=== PATIENT | male | born 1965 | race Caucasian/White ===

== ENCOUNTER 2018-02-05 15:32 | Outpatient (CLI) | payer BC ==
--- NOTE | 2018-02-05 19:27 | MRI ---
MRI BRAIN AND INTERNAL AUDITORY CANALS WITH AND WITHOUT CONTRAST: HISTORY: A 52-year-old male with: H90.41, sensorineural hearing loss, unilateral, right ear, with unrestricted hearing on the contralat eral side. H91.21, sudden idiopathic hearing loss, right ear. TECHNIQUE: Multiple sequences obtained in axial, sagittal, and coronal planes; both whole brain images and thin slices through the IAC's, pre and post IV injection of gadolinium-based contrast agent: MultiHance 1 9 mL. FINDINGS: The ventricles are normal in size and configuration. There is no major intraaxial signal abnormality , restricted diffusion, abnormal intraaxial enhancement, mass, midline shift or any other mass effect , recent intraaxial hemorrhage. There is no abnormal enhancement, mass, or morphologic abnormality, involving the cerebellopontine an gles, 7th-8th nerve complexes, internal auditory canals, cochleae, vestibules, vestibular aqueducts, or semicircular canals. Incidentally, there is a thin, approximately 2.5 x 0.5 x 1.5 cm arachnoid cyst at the medial aspect o f the left middle cranial fossa. IMPRESSION: 1. Normal appearance of the inner ear structures. 2. Incidental finding of a small arachnoid cyst in the left middle cranial fossa. 3. Otherwise normal. jnr POS: TPJelly
== END 2018-02-05 15:33 | disposition home or self-care (01) ==
LOC: BICMRI 15:32
PROVIDERS: ATTEND Family Medicine
DX: H91.21 Sudden idiopathic hearing loss, right ear (principal)
CPT/HCPCS: 70553